=== PATIENT | female | born 1995 | race African-American/Black ===

== ENCOUNTER 2022-08-17 21:25 | Emergency (ER) | payer OTHER ==
[~2022-08-17] VITALS: Ht 157.5 cm; Wt 42.2 kg
[2022-08-17] MEDS ORDERED: OLANZAPINE 10 MG VIAL IM ONE ×2 (22:25→22:30)
[2022-08-17] MEDS ORDERED: LORAZEPAM INJ 2 MG/ML VIAL ONE (22:25)
[2022-08-17] MEDS ORDERED: LORAZEPAM INJ 2 MG/ML VIAL IM ONE (22:30)
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
--- NOTE | 2022-08-17 23:28 | NUR ---
URINE SPECIMEN SENT TO LAB
[2022-08-17 23:29] LABS: BASOPHILS # (AUTO) 0.1 K/uL (0.0-0.2); BASOPHILS % (AUTO) 0.5 % (0.0-2.0); EOSINOPHILS % (AUTO) 0.2 % (0.0-6.0); HEMATOCRIT 42 % (33-45); HEMOGLOBIN 13.3 g/dL (11.5-14.8); LYMPHOCYTES # (AUTO) 2.8 K/uL (0.8-4.8); LYMPHOCYTES % (AUTO) 20.9 % (20.0-44.0); MEAN CORPUSCULAR HGB CONC 32 g/dl (31.0-36.0); MEAN CORPUSCULAR VOLUME 95 fL (82-100); MONOCYTES # (AUTO) 1.1 K/uL (0.1-1.30); MONOCYTES % (AUTO) 8.4 % (2.0-12.0); NEUTROPHILS # (AUTO) 9.5 K/uL (1.8-8.9); PLATELET COUNT (AUTO) 293 K/uL (150-450); RED BLOOD CELL COUNT(AUTO) 4.38 MIL/uL (4.0-5.2); WHITE BLOOD COUNT (AUTO) 13.5 K/uL (4.3-11.0)
[2022-08-17 23:45] LABS: ALANINE AMINOTRANSFERASE 19 U/L (12-78); ALCOHOL, BLOOD 274 mg/dL (0-0); ALKALINE PHOSPHATASE 105 U/L (46-116); ASPARTATE AMINOTRANSFERASE 29 U/L (15-37); BILIRUBIN,DIRECT 0.1 mg/dL (0.0-0.2); BILIRUBIN,TOTAL 0.2 mg/dL (0.2-1.0); CALCIUM, SERUM 9.1 mg/dL (8.5-10.1); CARBON DIOXIDE 25 mmol/L (21-32); CHLORIDE 109 mmol/L (98-107); CREATININE 0.8 mg/dL (0.6-1.3); GLUCOSE 105 mg/dL (74-106); POTASSIUM 3.3 mmol/L (3.5-5.1); SODIUM SERUM 148 mmol/L (136-145); TOTAL PROTEIN, SERUM 7.3 g/dL (6.4-8.2); UREA NITROGEN, BLOOD 11 mg/dL (7-18)
[2022-08-18 00:21] LABS: BILIRUBIN,URINE NEGATIVE (NEGATIVE); COLOR,URINE YELLOW (YELLOW); LEUKOCYTE ESTERASE ,URINE NEGATIVE (NEGATIVE); NITRITE, URINE NEGATIVE (NEGATIVE); PROTEIN,URINE NEGATIVE (NEGATIVE); UGLUCOSE NEGATIVE (NEGATIVE); UROBILINOGEN,URINE 0.2 EU/dL (0.2)
--- NOTE | 2022-08-18 03:25 | NUR ---
PT WAS UPSET BECAUSE PT FROM OTHER BED IS TOO LOUD. NEEDS ATTENDED.
--- NOTE | 2022-08-18 06:09 | NUR ---
ANJALI CALLED FOR PSYCH EVAL
--- NOTE | 2022-08-18 07:13 | NUR ---
ANJALI GEORGE CRISIS TEAM AT PT'S BEDSIDE
--- NOTE | 2022-08-18 10:30 | NUR ---
RESTING IN BED. EASILY AROUSABLE. PROVIDED W/ MEAL TRAY.
--- NOTE | 2022-08-18 11:15 | NUR ---
PT IS AWAKE, AMBULATORY W STEADY GAIT. DENIES SI/HI. STABLE VITAL SIGN. SEEN AND EVALUATED BY PET TEAM. HOLD BROKEN. D/C HOME IN STABLE CONDITION
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
[2022-08-18 11:18] VITALS: BP 105/60
== END 2022-08-18 11:18 | disposition home or self-care (01) ==
LOC: ER 21:33
DX: R46.1 Bizarre personal appearance (principal); Z20.822 Contact with and (suspected) exposure to COVID-19
CPT/HCPCS: 99285; 96372 ×2; 85025; 80048; 80076; 84703; 81003; 36415; 87426; 80143; 80320; 80307; J2060; J3490; C9803; G0480